=== PATIENT | male | born 1950 | race Caucasian/White ===

== ENCOUNTER 2018-05-13 20:06 | Emergency (ER) | payer MEDICARE, OTHER ==
[2018-05-13] MEDS ORDERED: Carbamide Peroxide 6.5% OTIC* 15 ML BTL BOTH EARS SCH (21:45)
[2018-05-13] MEDS ORDERED: Ciproflox/Dexameth OTIC.SUSP* 7.5 ML BTL LEFT EAR SCH (21:45)
--- NOTE | 2018-05-13 21:50 | ED ---
Throat Pain/Nasal Congestion - HPI Summary HPI Summary: This is scribe Kodak Pacheco documenting for attending Blanca Cobb MD. A 67 y/o male presents to ED c/o left ear pain and difficulty hearing reaching 4 /10 in severity. As per triage, "Pt c/o left ear pain since this weekend. States he now feels as if he can't hear from his ear. Reports hx of ear infections. States he had left over ear drops he's been utilizing with no effects". According to the patient, he has been experiencing left ear pain and difficulty hearing out of the left ear since Sunday. he noted that it started Sunday, but it became worse over this past weekend. Pt denies any fever. PMHx of external ear infection with hearing loss because it swells up. I, Dr. Cobb, personally performed the services described in this documentation as scribed in my presence and it is both accurate and complete. - History of Current Complaint Chief Complaint: EDEarPain Time Seen by Provider: 05/13/18 21:08 Hx Obtained From: Patient Onset/Duration: Sudden Onset, Lasting Days, Still Present, Worse Since - Onset Severity: Mild - 3/10 Associated Signs And Symptoms: Positive: Negative Cough: None - Allergies/Home Medications Allergies/Adverse Reactions: Allergies Allergy/AdvReac Type Severity Reaction Status Date / Time acetaminophen [From Vicodin] Allergy Anaphylatic Verified 05/13/18 20:13 Shock hydrocodone [From Vicodin] Allergy Anaphylatic Verified 05/13/18 20:13 Shock hydromorphone [From Dilaudid] Allergy Anaphylatic Verified 05/13/18 20:13 Shock oxycodone Allergy Anaphylatic Verified 05/13/18 20:13 Shock oxymorphone Allergy Anaphylatic Verified 05/13/18 20:13 Shock Penicillins Allergy Unknown Verified 05/13/18 20:13 Reaction Details PMH/Surg Hx/FS Hx/Imm Hx Endocrine/Hematology History: Reports: Hx Diabetes Cardiovascular History: Reports: Hx Hypertension, Other Cardiovascular Problems/ Disorders - OCC PAC'S Denies: Hx Pacemaker/ICD History: Reports: Hx Kidney Stones - 09/13 Denies: Hx Dialysis Comment Only: Hx Renal Disease - KIDNEY STONES, Other Problems/Disorders - hx kidney stones Musculoskeletal History: Reports: Hx Arthritis - OSTEO BILAT KNEES, Other Musculoskeletal History - L SCIATICA Sensory History: Reports: Hx Contacts or Glasses - GLASSES Denies: Hx Hearing Aid Opthamlomology History: Reports: Hx Contacts or Glasses - GLASSES Psychiatric History: Reports: Hx Anxiety, Hx Depression - WELL CONTROLLED Denies: Hx Eating Disorder, Hx Panic Disorder, Hx of Violent Episodes Against Others - Surgical History Surgery Procedure, Year, and Place: tonsilectomy/lypoma removed from back/ lithotripsy Hx Anesthesia Reactions: No Infectious Disease History: No Infectious Disease History: Denies: Traveled Outside the [place] in Last 30 Days - Family History Known Family History: Positive: Diabetes - Social History Alcohol Use: Occasionally Substance Use Type: Reports: None Hx Tobacco Use: Yes Smoking Status (MU): Never Smoked Tobacco Have You Smoked in the Last Year: No Review of Systems Negative: Fever Positive: Ear Ache - Left, Other - POSITIVE: Difficulty hearing out of left ear All Other Systems Reviewed And Are Negative: Yes Physical Exam - Summary Physical Exam Summary: VITAL SIGNS: Reviewed. GENERAL: Patient is a well-developed and nourished male who is lying comfortable in the stretcher. Patient is not in any acute respiratory distress. HEAD AND FACE: No signs of trauma. No ecchymosis, hematomas or skull depressions. No sinus tenderness. EYES: PERRLA, EOMI x 2, No injected conjunctiva, no nystagmus. EARS: Bilateral cerumen in both ears, left ear tenderness, left ear arch movement, edema in external ear canal MOUTH: Oropharynx within normal limits. NECK: Supple, trachea is midline, no adenopathy, no JVD, no carotid bruit, no c- spine tenderness, neck with full ROM. CHEST: Symmetric, no tenderness at palpation LUNGS: Clear to auscultation bilaterally. No wheezing or crackles. CVS: Regular rate and rhythm, S1 and S2 present, no murmurs or gallops appreciated. ABDOMEN: Soft, non-tender. No signs of distention. No rebound no guarding, and no masses palpated. Bowel sounds are normal. EXTREMITIES: FROM in all major joints, no edema, no cyanosis or clubbing. NEURO: Alert and oriented x 3. No acute neurological deficits. Speech is normal and follows commands. SKIN: Dry and warm Triage Information Reviewed: Yes Vital Signs On Initial Exam: Initial Vitals Temp Pulse Resp BP Pulse Ox 98.0 F 86 18 133/74 99 05/13/18 20:08 05/13/18 20:08 05/13/18 20:08 05/13/18 20:08 05/13/18 20:08 Vital Signs Reviewed: Yes Diagnostics - Vital Signs Vital Signs Temp Pulse Resp BP Pulse Ox 05/13/18 20:08 98.0 F 86 18 133/74 99 - Laboratory Lab Statement: Any lab studies that have been ordered have been reviewed, and results considered in the medical decision making process. EENT Course/Dx - Course Course Of Treatment: A 67 y/o male presents to ED c/o left ear pain and difficulty hearing reaching 4/10 in severity. No laboratory scans were done. In the ED course, the patient recieved Ciprodex and Debrox. Patient will be discharged with a diagnosis of left otitis externa and bilateral cerumen impaction. Patient is to follow up with ENT in 1-2 days. Patient will be given Ciprodex and ear drops. Patient is to use 4 drops of Ciprodex twice a day to left ear and 5 ear drops to both ears daily. Patient is agreeable with this plan. - Diagnoses Provider Diagnoses: Left otitis externa, Bilateral impacted cerumen Discharge - Sign-Out/Discharge Documenting (check all that apply): Patient Departure - DISCHARGE - Discharge Plan Condition: Stable Disposition: HOME Patient Education Materials: Cerumen Impaction (ED), Earache (ED) Referrals: Leda Juarez NP [Primary Care Provider] - Luis Miguel Bui MD [Medical Doctor] - 2 Days Additional Instructions: FOLLOW UP WITH ENT IN 1-2 DAYS. EAR DROPS: 5 DROPS DAILY IN BOTH EARS CIPRODEX: 4 DROPS TWICE PER DAY IN LEFT EAR ONLY. RETURN TO ED FOR ANY NEW OR WORSENING SYMPTOMS.
[2018-05-13 22:16] VITALS: BP 101/55
== END 2018-05-13 22:14 | disposition home or self-care (01) ==
LOC: ED 20:06
DX: H60.92 Unspecified otitis externa, left ear (principal); H61.23 Impacted cerumen, bilateral; E11.9 Type 2 diabetes mellitus without complications; I10 Essential (primary) hypertension; Z86.79 Personal history of other diseases of the circulatory system; Z87.442 Personal history of urinary calculi
CPT/HCPCS: 99283; A9270-GY

== ENCOUNTER 2018-12-18 05:44 | Day surgery (SDC) | payer MEDICARE, OTHER ==
--- NOTE | 2018-12-14 13:40 | HP ---
CC: Leda Juarez NP * HISTORY AND PHYSICAL: DATE OF PLANNED ADMISSION AND SURGERY: 12/18/18 HISTORY OF PRESENT ILLNESS: Mr. Ricardo is a 68-year-old white male who is admitted with a proximal right ureteral calculus for cystoscopy, placement of right ureteral stent, possible right ureteroscopy, and laser lithotripsy. I have been following Mr. Ricardo for several years because of bilateral renal calculi. He had required a right ureteroscopy and laser lithotripsy because of an obstructing renal calculus in July 2006. He then required treatment for left renal calculi including percutaneous lithotripsy in 2007. Patient presented recently for followup of his renal calculus disease. Noncontrast CT of the abdomen and pelvis showed a non-obstructing 2 cm calculus in the lower pole calyx of the left kidney. There was also an 8 mm calculus in the proximal right ureter with no associated hydronephrosis. Small right renal calculi were also noted. Because of that finding and the concern about an obstruction as a result of the right ureteral calculus, the patient is admitted for the above procedure. Patient had metabolic stone workup and was noted to have low citrate excretion and high calcium urine excretion. He had been maintained on potassium citrate supplementation and was recently started on chlorthalidone 25 mg daily to correct the hypercalcuria. PAST MEDICAL HISTORY AND SYSTEM REVIEW: Patient is diabetic and has been maintained on glipizide and was recently started on a glycosuric agent controlling his blood sugar, which has been running around 130. He is hypertensive, maintained on losartan. He is on tamsulosin 0.4 mg daily for bladder outlet obstruction. He denies any cardiac or pulmonary diseases or symptoms. ALLERGIES: He reports being allergic to PENICILLIN and to CODEINE. FAMILY HISTORY: Relevant for diabetes mellitus, coronary artery disease, hypertension in his father. SOCIAL HISTORY: Patient is a former smoker and he stopped in 1969. He has 4 or 5 glasses of wine per week. He denies any recreational drug use. PHYSICAL EXAMINATION GENERAL: Moderately overweight; otherwise, healthy-looking white male. VITAL SIGNS: Blood pressure 130/70, pulse of 64. LUNGS: Clear. HEART: Regular and rhythmic. No murmurs. ABDOMEN: Soft. No masses, no tenderness, and no CVA tenderness. EXTERNAL GENITALIA: Normal. RECTAL: Exam had shown a moderately enlarged, but non-suspicious prostate. IMPRESSION: 1. A 2 cm nonobstructing calculus in the lower pole calyx of the left kidney. 2. An 8 mm nonobstructing calculus in the proximal right ureter. 3. Diabetes mellitus. 4. Hypertension. PLAN/RECOMMENDATIONS: Plan is for cystoscopy and insertion of right ureteral stent. If the calculus is found to be accessible by ureteroscopy, then ureteroscopy and laser lithotripsy will be performed. Otherwise, patient will be scheduled to have shockwave lithotripsy of the right ureteral calculus at a later date. I discussed the above plans with the patient. All his questions were answered. [id number]/[facility] #: [id number] TOÑO
[~2018-12-18 05:44] MED LIST: Buffered Lidocaine 1% SYRIN* 1 ML/SYRINGE INTRADERM ONE
[2018-12-18] MEDS ORDERED: Lactated Ringers 1000 ML Bag* 1,000 ML IV SCH (06:00)
[2018-12-18] MEDS ORDERED: Famotidine IV* 10 MG/ML 2 ML (20 mg) IV ONE (06:00)
[2018-12-18] MEDS ORDERED: Levofloxacin 750 MG IVPREMIX(* 750 MG/150 ML BAG ONE (06:03)
[2018-12-18] MEDS ORDERED: Famotidine IV* 10 MG/ML 2 ML (20 mg) ONE (06:03)
[2018-12-18] MEDS ORDERED: Midazolam* 1 MG/ML 5 ML VIAL (5 MG) ONE (07:11)
[2018-12-18] MEDS ORDERED: Lidocaine 2% PF * 5 ML VIAL ONE (07:11)
[2018-12-18] MEDS ORDERED: Dexamethasone IV* 4 MG/ML 1 ML (4 MG) ONE (07:11)
[2018-12-18] MEDS ORDERED: Ondansetron INJ* 2 MG/ML VIAL ONE (07:11)
[2018-12-18] MEDS ORDERED: Propofol* 10 MG/ML 20 ML BTL ONE (07:11)
[2018-12-18] MEDS ORDERED: fentaNYL* 50 MCG/ML 2 ML VIAL (100 MCG VIAL) ONE (07:11)
[2018-12-18] MEDS ORDERED: Iohexol 180 (CONTRAST) 10 ML SDV IV ONE (07:15)
[2018-12-18] MEDS ORDERED: Ketorolac INJ* 30 MG/ML 1 ML VIAL ONE (08:12)
[2018-12-18] MEDS ORDERED: fentaNYL* 50 MCG/ML 2 ML VIAL (100 MCG VIAL) IV PRN (08:14)
[2018-12-18] MEDS ORDERED: Ondansetron INJ* 2 MG/ML VIAL IV PRN (08:14)
[2018-12-18] MEDS ORDERED: Naloxone* 0.4 MG/ML 1 ML VIAL IV PRN (08:14)
[2018-12-18 09:47] VITALS: BP 126/86
--- NOTE | 2018-12-18 09:59 | OP ---
CC: Leda Juarez NP * DATE OF OPERATION: 12/18/18 - [facility] DATE OF : 52 SURGEON: Dr. Ken ANESTHESIOLOGIST: Dr. Chris Flowers. ANESTHESIA: General. PRE-OP DIAGNOSIS: Proximal right ureteral calculus (8 mm). POST-OP DIAGNOSIS: Proximal right ureteral calculus (8 mm). OPERATIVE PROCEDURE: 1. Cystoscopy. 2. Right ureteroscopy, laser lithotripsy, and right ureteral stent insertion ( 7 Serbian). INDICATIONS: Mr. Ricardo is a 68-year-old stone former who had a recent noncontrast CT of the abdomen and pelvis for evaluation of his bilateral renal calculi. There was an nonobstructing 2-cm calculus in the lower pole calyx of the left kidney and a nonobstructing 8-mm calculus in the proximal right ureter. Because of that finding. The size and the location of the stone, the patient was brought in for the above procedure. PATHOLOGY AT CYSTOSCOPY: The penile and bulbar urethra looked normal. There was significant degree of obstruction by prostate enlargement, in particular by prominent medial lobe. Examination of the bladder showed moderate diffuse trabeculations. There were no suspicious bladder lesions seen. No calculi or diverticuli were noted. The ureteral orifices looked normal. At fluoroscopy, a radiopaque calculus was noted across from L3-L4. Upon right ureteroscopy, the ureter was moderately dilated and there was no difficulty introducing the ureteroscope. The calculus was noted in the proximal ureter. It was impacted. It had the gross appearance of a calcium oxylate stone. There was significant degree of edema of the adjacent ureteral mucosa. Mild hydronephrosis was noted. DESCRIPTION OF PROCEDURE: After successful general anesthesia, the patient was placed in the lithotomy position and was prepped and draped for a cystoscopy. Cystoscopy was performed. The bladder was carefully inspected and the findings in the prostatic urethra and in the bladder were noted. A flexible tip guidewire was then introduced into the right orifice and positioned without difficulty into the area of the renal pelvis under fluoroscopic guidance. A size 6.5 semi-rigid ureteroscope was then introduced inside the bladder. A flexible tip basket was then introduced through the port of the ureteroscope and the flexible tip was then introduced inside the right ureter adjacent to the guidewire. That allowed the atraumatic introduction of the ureteroscope inside the ureter. The ureter accommodated the ureteroscope without any resistance or difficulty. The calculus was identified. The basket was then introduced beyond the stone and it was deployed just proximal to the stone to prevent proximal wide migration of the calculus. A size 550 micron laser fiber was then introduced through the other port of the ureteroscope. The laser fiber was then positioned over the stone and the stone was broken into multiple fragments using laser energy. Care was taken not to cause any damage to the ureteral wall. After fragmenting the stone into smaller pieces, the larger fragment was then extracted with the basket and was sent for stone analysis. Several smaller fragments were extracted and washed inside the bladder. Final inspection with the ureteroscope showed no residual stone fragments and intact ureteral wall without any ureteral injury. There was, however, significant degree of hyperemia and abrasion of the mucosa because of the longstanding impaction of the calculus at that level. The cystoscope was reintroduced inside the bladder. Open ended catheter was positioned in the mid ureter and retrograde pyelography was performed demonstrating an intact ureter without evidence of any extravasation and only mild hydronephrosis. A size 7-Serbian stent was then placed over a guidewire and positioned with the proximal end coiling in the renal pelvis and the distal end coiling inside the bladder. Again, there was good drainage of contrast from the kidney and no extravasation. A 16-Serbian Hernandez catheter was then placed. The patient tolerated the procedure well and left the operating room in good condition. The plan is to keep the stent in place for about 2 weeks. It will be removed in the office under local anesthesia. The patient will then be referred for percutaneous lithotripsy of the large left renal calculus. [id number]/[facility] #: [id number] TOÑO
== END 2018-12-18 11:36 | disposition home or self-care (01) ==
LOC: OR 05:44
PROVIDERS: ATTEND Urology
DX: N13.2 Hydronephrosis with renal and ureteral calculous obstruction (principal); Z87.442 Personal history of urinary calculi; I10 Essential (primary) hypertension; Z88.0 Allergy status to penicillin; Z87.891 Personal history of nicotine dependence; E11.9 Type 2 diabetes mellitus without complications; I49.1 Atrial premature depolarization; M19.90 Unspecified osteoarthritis, unspecified site; F41.8 Other specified anxiety disorders
CPT/HCPCS: 74420; 82365; 88300; C1876; J1100; J1885; J2250; J2405; J2704; J3010

== ENCOUNTER 2019-07-07 19:29 | Day surgery (SDC) | payer MEDICARE, OTHER ==
--- OUTSIDE RECORDS SUMMARY | 2019-07-07 19:38 | XMS REPORT | Continuity of Care Document ---
:1950 External Reference #:[id number] Author Name Brandin Lyons MD (transmitted by agent of provider Chrissie Dwyer) Address [address] [place] [address] Care Team Providers Name Role Phone Sharon Hurst MD - Internal Care Team Information Solution Advisor Medicine Problems Active Problems Provider Date Diabetes mellitus Sharon Hurst M.D. Onset: 07/03/2014 Uric acid urolithiasis Concepcion Goncalves M.D., FACP Onset: 11/28/2011 Benign essential hypertension Concepcion Goncalves M.D., FACP Onset: 11/28/2011 Pure hypercholesterolemia Concepcion Goncalves M.D., FACP Onset: 11/28/2011 Essential hypertension Leda Juarez N.P. Onset: 07/13/2015 Social History Type Date Description Comments Sex Unknown ETOH Use Occasionally consumes alcohol Tobacco Use Start: Unknown Patient has never smoked Recreational Drug Use Denies Drug Use Smoking Status Reviewed: 06/12/19 Patient has never smoked Enjoy Exercising Enjoys exercising Exercises regularly Exercise Type/Frequency Exercises regularly swim Mondays and , Bike Sunday and fridays, walking. 30- 90 minutes daily Allergies, Adverse Reactions, Alerts Active Allergies Reaction Severity Comments Date Oxycodone swollen tongue Moderate 06/21/2010 Penicillin unknown 06/21/2010 Morphine and Related Anaphylaxis, Severe 10/06/2014 Medications Active Medications SIG Qnty Indications Ordering Date Provider Glipizide XL 20mg once daily 180tabs E11.65 Brandin Lyons MD 06/12/2019 10mg Tablets ER 24HR Jardiance 1 by mouth every 30tabs E11.65 Brandin Lyons MD 03/12/2019 25mg Tablets day Freestyle Daryl [address] one sensor 2units E11.65 Brandin Lyons MD 2018 Day/Sensor/Flash every 14 days Monitoring System Misc Metformin HCL ER 2 tablets by mouth 180tabs E11.65 Brandin Lyons MD 2018 750mg daily Tablets ER 24HR Psyllium Fiber Twice Daily Leda Juarez, 09/10/2018 N.P. Ciclopirox apply to affected Leda Juarez, 09/10/2018 8% Solution toenails and N.P. surrounding skin at bedtime Escitalopram Oxalate take 1 tablet by 30tabs F41.9 Leda Juarez, 2016 mouth every day N.P. 10mg Tablets Cialis 1 tablet every 3 14tabs Leda Diazmarilu, 05/09/2016 10mg Tablets days as needed N.P. Onetouch Verio use three times 1units Leda Juarez, 03/08/2016 w/Device daily or as N.P. Kit directed Onetouch Verio Use three times 100units Leda Diazmarilu, 03/08/2016 Strips daily or as N.P. directed. Traction Leda Juarez, 03/07/2016 Kit/Over-Door/Economy N.P. /Disp Head Halter Kit One Daily For Men 50+ Unknown Advanced Men 50+ Tablets Chlorthalidone 1 by mouth every 30tabs Unknown 25mg day Tablets Vitamin E-400 Unknown 400Unit Capsules Vitamin D3 Unknown 400Unit Chewtabs Dhea 1 by mouth one Unknown 50mg Capsules time per day Ginseng 2 Per Day Unknown Flomax 1 by mouth every Unknown 0.4mg Capsules day Metamucil as needed Unknown 28.3% Powder Multi Vitamin Daily Unknown Tablets Losartan Potassium take one tablet by 90tabs Leda Diazmarilu, mouth every day N.P. 100mg Tablets Potassium Citrate 4 tablets daily Dandre Ken, 10Eb LOVING (1080 mg) Immunizations CPT Code Status Date Vaccine Lot # [id number] Given 06/23/2017 Fluzone High Dose [id number] Given 11/04/2016 Influ Virus Vaccine, Quadrivalent, Split Virus, [place] [address] Given 07/13/2015 Pneumonia Vaccine [id number] 26653 Given 07/13/2015 Influenza Virus Vaccine, Quadrivalent, Split, [id number] Preservative Free 61911 Given 07/01/2013 Flu Vaccine Split Virus Preservative Free For [id number] Indiv 3Yr Older 20153 Given 11/30/2011 Zoster (Zostavax) [id number] 46831 Given 11/30/2011 Tdap - Tetanus/Diptheria/Acellular Pertussis [id number] 51022 Given 06/22/2010 Influenza Virus 3Yrs & Over 81839 Given 10/11/2009 Influenza Virus Vaccine, Pandemic Formulation 39966 Given 10/11/2009 Influenza Virus 3Yrs & Over 32126 Given 10/11/2009 Administration Swine Flu Shot 09126 Given 09/04/2008 Influenza Virus 3Yrs & Over 32259 Given 09/04/2008 Influenza Virus 3Yrs & Over 34164 Given 10/11/2006 Influenza Virus 3Yrs & Over Vital Signs Date Vital Result Comment 06/12/2019 11:48am Height 70 inches 5'10" Weight 210.00 lb w/ shoes Heart Rate 61 /min BP Systolic Sitting 113 mmHg BP Diastolic Sitting 72 mmHg BMI (Body Mass Index) 30.1 kg/m2 03/12/2019 9:35am Height 70 inches 5'10" Weight 214.00 lb w/ shoes Heart Rate 87 /min BP Systolic Sitting 123 mmHg BP Diastolic Sitting 76 mmHg BMI (Body Mass Index) 30.7 kg/m2 Results Test Date Facility Test Result H/L Range Note Stone Analysis 12/18/2018 [facility] Kidney Stone Ureter [address] [place] [address] [phone] Kidney Stone 1st Constituent See Comment 1 Kidney Stone 2nd Constituent See Comment 2 Laboratory test 12/18/2018 [facility] Point of Care 141 mg/dL High 70-[address] [place] [address] [phone] 1 RESULT: 80% Calcium oxalate monohydrate 2 RESULT: 20% Calcium oxalate dihydrate ADDITIONAL INFORMATION This test was developed and its performance characteristics determined by [facility] in a manner consistent with CLIA requirements. This test has not been cleared or approved by the U.S. Food and Drug Administration. Test Performed by: [facility] [address] [place] [address] 3 [employer]or: [id number] Procedures Date Code Description Status 11/13/2018 [id number] Diabetic Retinal Eye Exam Completed 01/15/2017 [id number] Diabetic Retinal Eye Exam Completed 03/07/2012 [id number] Colonoscopy Completed 12/30/2006 [id number] Colonoscopy Completed Medical Devices Description No Information Available Encounters Type Date Location Provider Dx Diagnosis Office Visit 03/12/2019 [facility] and Brandin Lyons MD E11.65 Type 2 diabetes 9:20a Endocrinology [facility] mellitus with hyperglycemia I10 Essential (primary) hypertension Office Visit 03/11/2019 10:00a [facility] Internal Nita Juarez Essential ( primary) Medicine - [facility] N.P. hypertension E11.65 Type 2 diabetes mellitus with hyperglycemia B35.1 Tinea unguium Assessments Date Code Description Provider 06/12/2019 E11.65 Type 2 diabetes mellitus with hyperglycemia Brandin Lyons MD 03/12/2019 E11.65 Type 2 diabetes mellitus with hyperglycemia Brandin Lyons MD 03/12/2019 I10 Essential (primary) hypertension Brandin Lyons MD 03/11/2019 I10 Essential (primary) hypertension Leda Juarez, N.P. 03/11/2019 E11.65 Type 2 diabetes mellitus with hyperglycemia Leda Juarez , N.P. 03/11/2019 B35.1 Tinea unguium Leda Juarez, N.P. Plan of Treatment Future Appointment(s):09/18/2019 11:40 am - Brandin Lyons MD at [facility]09/19/2019 9:20 am - Leda Juarez, N.P. at [facility] Brandin Lyons MDE11.65 Type 2 diabetes mellitus with hyperglycemiaNew Medication:Glipizide XL 10 mg - 20mg once dailyInstructions:1. Increase glipizide XL to 10mg once daily. 2. If average blood glucose is >140mg/dL, increase glipizide XL to 20mg once daily. 3. Consider [id number] insulin such as Lantus or Tresiba. 4. Your A1c goal is less than 7.5%. 5. Blood tests today. Functional Status Description No Information Available Mental Status Description No Information Available Referrals Refer to Dr Reason for Referral Status Appt Date Kike Naranjo DPM Patient is a diabetic with fungal infection Sent of both great toes. resent on 06/[address] [place] [address] [phone]
[2019-07-07 20:10] LABS: Urine Appearance Clear; Urine Bacteria Absent (Absent); Urine Bilirubin Negative (Negative); Urine Blood 1+ (Negative); Urine Color Yellow; Urine Glucose 3+(>=500 mg/dL) (Negative); Urine Ketones Negative (Negative); Urine Nitrite Negative (Negative); Urine Protein Negative (Negative); Urine Red Blood Cell Trace(0-2/hpf) (Absent); Urine Specific Gravity 1.023 (1.010-1.030); Urine Squamous Epithelial Cell Present (Absent); Urine Urobilinogen Negative (Negative); Urine White Blood Cell 2+(11-20/hpf) (Absent)
[2019-07-07] MEDS ORDERED: Ketorolac INJ* 30 MG/ML 1 ML VIAL IV ONE (22:47)
[2019-07-07] MEDS ORDERED: Ondansetron INJ* 2 MG/ML VIAL IV ONE (22:47)
[2019-07-07 23:14] LABS: ABS Basophils 0.1 10^3/ul (0-0.2); ABS Lymphocytes 0.5 10^3/ul (1.0-4.8); ABS Neutrophils 13.1 10^3/ul (1.5-7.7); Eosinophil % 0.1 %; Hematocrit 44 % (42-52); Hemoglobin 14.9 g/dL (14.0-18.0); Lymphocyte % 3.3 %; Mean Corpuscular HGB Conc 34 g/dL (31-36); Mean Corpuscular Hemoglobin 30 pg (27-31); Mean Corpuscular Volume 89 fL (80-94); Platelet Count 222 10^3/uL (150-450); Red Blood Count 4.93 10^6 /uL (4.18-5.48); Red Cell Distribution Width 15 % (10-15); White Blood Count 14.7 10^3/uL (3.5-10.8)
--- NOTE | 2019-07-07 23:40 | ED ---
Back Pain - HPI Summary HPI Summary: Pt is a 69 y/o M presenting to the ED with a chief complaint of L-sided flank pain initially onset earlier today, 07/07/19. He states he has a long hx of recurring kidney stones that usually pass on their own. However, this pain was sudden onset at 07/10 and it has not moved very far down. His last kidney stone , Dr. Ken placed a stent after breaking up the stone. He reports N/V. He denies fever. 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 - History of Current Complaint Chief Complaint: EDAbdPain Stated Complaint: POSS KIDNEY STONE PER PT Time Seen by Provider: 07/07/19 22:27 Hx Obtained From: Patient Onset/Duration: Sudden Onset, Lasting Hours, Still Present Onset/Duration: Started Hours Ago, Still Present Timing: Constant, Lasting Hours Back Pain Location: Is Discrete @ - L flank Severity Initially: Severe Severity Currently: Severe Pain Intensity: 10 Pain Scale Used: 0-10 Numeric Aggravating Symptom(s): Nothing Alleviating Symptom(s): Nothing Associated Signs And Symptoms: Positive: Flank Pain. Negative: Fever - Allergies/Home Medications Allergies/Adverse Reactions: Allergies Allergy/AdvReac Type Severity Reaction Status Date / Time hydrocodone [From Vicodin] Allergy Severe Anaphylatic Verified 07/07/19 19:32 Shock hydromorphone [From Dilaudid] Allergy Severe Anaphylatic Verified 07/07/19 19:32 Shock oxycodone Allergy Severe Anaphylatic Verified 07/07/19 19:32 Shock oxymorphone Allergy Severe Anaphylatic Verified 07/07/19 19:32 Shock Penicillins Allergy Unknown Unknown Verified 07/07/19 19:32 Reaction Details Home Medications: Home Medications Aspirin [Aspir-Low] 81 mg PO QPM 07/07/19 [History Confirmed 07/07/19] Chlorthalidone 25 mg PO QAM 07/07/19 [History Confirmed 07/07/19] Empaglifozin (NF) [Jardiance] 25 mg PO QAM 07/07/19 [History Confirmed 07/07/19] Glipizide/Metformin HCl 5 - 500 mg PO QID 07/07/19 [History Confirmed 07/07/19] glipiZIDE [Glipizide ER] 20 mg PO QAM 07/07/19 [History Confirmed 07/07/19] PMH/Surg Hx/FS Hx/Imm Hx Previously Healthy: Yes Endocrine/Hematology History: Reports: Hx Diabetes - type 2 Cardiovascular History: Reports: Hx Hypertension, Other Cardiovascular Problems/ Disorders - OCC PAC'S Denies: Hx Pacemaker/ICD History: Reports: Hx Kidney Stones - hx of and now Denies: Hx Dialysis Comment Only: Hx Renal Disease - KIDNEY STONES, Other Problems/Disorders - hx kidney stones Musculoskeletal History: Reports: Hx Arthritis - OSTEO BILAT KNEES, Other Musculoskeletal History - hx of R SCIATICA- resolved Sensory History: Reports: Hx Contacts or Glasses - GLASSES Denies: Hx Hearing Aid Opthamlomology History: Reports: Hx Contacts or Glasses - GLASSES Psychiatric History: Reports: Hx Anxiety - hx of panic attacks- not lately, Hx Depression - WELL CONTROLLED Denies: Hx Eating Disorder, Hx Panic Disorder, Hx of Violent Episodes Against Others - Cancer History Hx Chemotherapy: No - Surgical History Surgery Procedure, Year, and Place: tonsilectomy/lypoma removed from back/ lithotripsy. 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 Hx Anesthesia Reactions: No - Immunization History Immunizations Up to Date: Yes Infectious Disease History: Yes Infectious Disease History: Denies: Traveled Outside the [place] in Last 30 Days - Family History Known Family History: Positive: Diabetes - Social History Alcohol Use: Occasionally Hx Substance Use: No Substance Use Type: Reports: None Hx Tobacco Use: Yes Smoking Status (MU): Former Smoker Have You Smoked in the Last Year: No Review of Systems Negative: Fever Positive: Vomiting, Nausea Positive: flank pain All Other Systems Reviewed And Are Negative: Yes Physical Exam - Summary Physical Exam Summary: Constitutional: Well-developed, Well-nourished, Alert. (-) Distressed Skin: Warm, Dry HENT: Normocephalic; Atraumatic Eyes: Conjunctiva normal Neck: Musculoskeletal ROM normal neck. (-) JVD, (-) Stridor, (-) Tracheal deviation Cardio: Rhythm regular, rate normal, Heart sounds normal; Intact distal pulses; Radial pulses are 2+ and symmetric. (-) Murmur Pulmonary/Chest wall: Effort normal. (-) Respiratory distress, (-) Wheezes, (-) Rales Abd: Soft, (-) tenderness, (-) Distension, (-) Guarding, (-) Rebound Musculoskeletal: (-) Edema Lymph: (-) Cervical adenopathy Neuro: Alert, Oriented x3 Psych: Mood and affect Normal Triage Information Reviewed: Yes Vital Signs On Initial Exam: Initial Vitals Temp Pulse Resp BP Pulse Ox 97.8 F 77 16 136/83 99 07/07/19 19:30 07/07/19 19:30 07/07/19 19:30 07/07/19 19:30 07/07/19 19:30 Vital Signs Reviewed: Yes Procedures - Sedation Patient Received Moderate/Deep Sedation with Procedure: No Diagnostics - Vital Signs Vital Signs Temp Pulse Resp BP Pulse Ox 07/07/19 19:30 97.8 F 77 16 136/83 99 - Laboratory Lab Results: Lab Results 07/07/19 07/07/19 Range/Units 19:51 23:07 WBC 14.7 H (3.5-10.8) 10^3/uL RBC 4.93 (4.18-5.48) 10^6 /uL Hgb 14.9 (14.0-18.0) g/dL Hct 44 (42-52) % MCV 89 (80-94) fL MCH 30 (27-31) pg MCHC 34 (31-36) g/dL RDW 15 (10-15) % Plt Count 222 (150-450) 10^3/uL MPV 7.0 L (7.4-10.4) fL Neut % (Auto) 89.6 % Lymph % (Auto) 3.3 % [place] % (Auto) 6.6 % Eos % (Auto) 0.1 % Baso % (Auto) 0.4 % Absolute Neuts (auto) 13.1 H (1.5-7.7) 10^3/ul Absolute Lymphs (auto) 0.5 L (1.0-4.8) 10^3/ul Absolute Monos (auto) 1.0 H (0-0.8) 10^3/ul Absolute Eos (auto) 0.0 (0-0.6) 10^3/ul Absolute Basos (auto) 0.1 (0-0.2) 10^3/ul Absolute Nucleated RBC 0.0 10^3/ul Nucleated RBC % 0.0 Urine Color Yellow Urine Appearance Clear Urine pH 5.0 (5-9) Ur Specific [place] 1.023 (1.010-1.030) Urine Protein Negative (Negative) Urine Ketones Negative (Negative) Urine Blood 1+ A (Negative) Urine Nitrate Negative (Negative) Urine Bilirubin Negative (Negative) Urine Urobilinogen Negative (Negative) Ur Leukocyte Esterase Negative (Negative) Urine WBC (Auto) 2+(11-20/hpf) A (Absent) Urine RBC (Auto) Trace(0-2/hpf) (Absent) Ur Squamous Epith Cells Present A (Absent) Urine Bacteria Absent (Absent) Urine Glucose 3+(>=500 mg/dl) A (Negative) Result Diagrams: 07/07/19 23:07 07/07/19 23:07 Lab Statement: Any lab studies that have been ordered have been reviewed, and results considered in the medical decision making process. Back Pain Course/Dx - Course Course Of Treatment: Patient is here with left flank pain secondary to a 14 mm obstructed kidney stone. Patient has a hydronephrosis as well. Patient has no symptoms consistent with infected kidney stones antibiotics were not given. Patient had good pain resolution with Toradol. Urology was called and they recommended admission for possible procedure in the morning - Diagnoses Provider Diagnoses: Urinary tract obstruction by kidney stone, Hydronephrosis - Provider Notifications Discussed Care Of Patient With: Shubham Duarte Time Discussed With Above Provider: 00:45 Instructed by Provider To: Admit As Inpatient Discharge ED - Sign-Out/Discharge Documenting (check all that apply): Patient Departure - Discharge Plan Condition: Stable Disposition: ADMITTED TO [facility] Referrals: Leda Juarez NP [Primary Care Provider] - - Billing Disposition and Condition Condition: STABLE Disposition: Admitted to [facility] - Attestation Statements Document Initiated by Meeraibclay: Yes Documenting Scribe: Connie Beard Provider For Whom Deb is Documenting (Include Credential): Ez Cummins MD. Scribe Attestation: Connie Rodríguez, scribed for Ez Cummins MD. on 07/08/19 at 0358. Scribe Documentation Reviewed: Yes Provider Attestation: The documentation as recorded by the scribeConnie accurately reflects the service I personally performed and the decisions made by me, Ez Cummins MD. Status of Scribe Document: Viewed Consult Consult: 0038 - I spoke with Dr. Ken who recommends that the pt be admitted to the hospitalist. 0045 - I spoke with Dr. Duarte who accepts the pt for admission.
[2019-07-07 23:57] LABS: BUN/Creatinine Ratio 21.7 (8-20); Calcium 9.8 mg/dL (8.6-10.3); EGFR Non-African American 51.2 (>60)
[2019-07-08] MEDS ORDERED: NS 0.9% 1000 ML** 1,000 ML IV ONE (04:56)
[2019-07-08] MEDS ORDERED: NS 0.9% 1000 ML** 1,000 ML IV SCH (05:00)
[2019-07-08] MEDS ORDERED: Ondansetron INJ* 2 MG/ML VIAL IV PRN (05:03)
[2019-07-08] MEDS ORDERED: Ketorolac INJ* 15 MG/ML 1 ML VIAL IV PUSH PRN (05:08)
[2019-07-08 06:00] LABS: ABS Basophils 0.1 10^3/ul (0-0.2); ABS Lymphocytes 1.1 10^3/ul (1.0-4.8); ABS Monocytes 0.7 10^3/ul (0-0.8); ABS Neutrophils 12.1 10^3/ul (1.5-7.7); Eosinophil % 0.2 %; Hematocrit 43 % (42-52); Hemoglobin 14.8 g/dL (14.0-18.0); Lymphocyte % 8.1 %; Mean Corpuscular HGB Conc 34 g/dL (31-36); Mean Corpuscular Hemoglobin 31 pg (27-31); Mean Corpuscular Volume 89 fL (80-94); Mean Platelet Volume 7.3 fL (7.4-10.4); Platelet Count 224 10^3/uL (150-450); Red Blood Count 4.85 10^6 /uL (4.18-5.48); Red Cell Distribution Width 14 % (10-15)
[2019-07-08 06:15] LABS: Calcium 9.5 mg/dL (8.6-10.3); Potassium 4.2 mmol/L (3.5-5.0)
[2019-07-08 06:21] LABS: BUN/Creatinine Ratio 21.8 (8-20); EGFR African American 53.8 (>60); EGFR Non-African American 44.5 (>60)
[2019-07-08] MEDS ORDERED: Insulin LISPRO* 1 UNITS UNIT SUBCUT SCH (07:30)
[2019-07-08] MEDS ORDERED: Dextrose 50% VIAL 50 ml IV PUSH PRN (07:35)
[2019-07-08] MEDS ORDERED: Escitalopram * 10 MG TAB PO SCH (09:00)
[2019-07-08] MEDS ORDERED: Tamsulosin CAP* 0.4 MG PO SCH (09:00)
[2019-07-08] MEDS ORDERED: Calcium Polycarbophil TAB* 625 MG PO SCH (09:00)
[2019-07-08] MEDS ORDERED: Multivitamins/Minerals TAB PO SCH (09:00)
[2019-07-08] MEDS ORDERED: VITAMIN E 400 UNIT PO SCH (09:00)
[2019-07-08] MEDS ORDERED: VITAMIN D 2000 UNIT PO SCH (09:00)
--- NOTE | 2019-07-08 09:09 | HP ---
CC: Yvette Leda Diazmarilu, CHEMICAL RADIATION TECHNICIAN * Urology Pre-op Note: DATE OF ADMISSION AND SURGERY: 07/08/19 HISTORY OF PRESENT ILLNESS: Mr. Ricardo is a 69-year-old white male who is admitted with left renal colic, obstructing proximal left ureteral calculus, for cystoscopy and insertion of left ureteral stent. Mr. Ricardo is a known stone former and I have been following him for many years because of bilateral renal and ureteral calculi. He had a metabolic stone workup and was noted to have low citrate urine excretion and high calcium urine excretion, and has been maintained on potassium citrate supplementation and chlorthalidone 25 mg daily. He was recently seen in consultation at the [facility] because of large left renal calculi, with the option of performing percutaneous lithotripsy. The stones were asymptomatic and non obstructing and recommendation was made for continued conservative management. Patient presented to the emergency room late last night with symptoms of left renal colic. He did not have any fever or chills. There was associated nausea and vomiting. Non-contrast CT of the abdomen and pelvis showed a 2 cm nonobstructing calculus in the lower pole calyx of the left kidney, a 1.5 cm obstructing calculus in the proximal left ureter. There were reactive changes around the left kidney consistent with edema or possible urinary extravasation. There were also smaller non-obstructing right renal calculi. No other abnormalities were noted. Patient's lab work showed a white count of 14,000. His creatinine was 1.6. Urinalysis showed +2 esterase, +1 blood, negative nitrite. Patient was managed with IV fluid and pain medications. Because of the size of the stone, its location and the associated hydronephrosis ,he will be taken to the operating room for insertion of left ureteral stent in preparation for definitive treatment of the stone. PAST MEDICAL HISTORY AND SYSTEM REVIEW: He is diabetic, maintained on glipizide. He denies any cardiac or pulmonary diseases or symptoms. He is hypertensive, maintained on losartan. He has been on tamsulosin 0.4 mg daily for bladder outlet obstruction. ALLERGIES: Patient reports being allergic to PENICILLIN (reaction unknown, childhood reaction?) and to ALL OPIATES which give him swelling of the tongue. FAMILY HISTORY: Relevant for diabetes mellitus, coronary artery disease and hypertension in his father. SOCIAL HISTORY: Patient is a former smoker, stopped in 1969. He has 4 or 5 glasses of wine per week. He denies recreational drug use. 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 PHYSICAL EXAMINATION GENERAL: He is an overweight white male who is in mild pain. VITAL SIGNS: Blood pressure 115/70. Pulse of 76. Temperature 98. LUNGS: Clear. HEART: Regular and rhythmic. No murmurs. ABDOMEN: Soft. There is mild left CVA tenderness. The rest of the abdominal exam is normal. IMPRESSION: 1. Left renal colic secondary to 1.5 cm obstructing calculus in the proximal left ureter. 2. Nonobstructing 2 cm calculus in the lower pole calyx of the left kidney. 3. Nonobstructing right renal calculi. 4. Diabetes mellitus. PLAN: Plan is for cystoscopy and insertion of left ureteral stent in preparation for definitive treatment of the stone. I discussed above plans with the patient. All his questions were answered. [id number]/CPS #: [id number] MTDD
--- NOTE | 2019-07-08 09:42 | HP ---
CC: Leda Juarez NP; Dr. Dandre Ken * ADMISSION HISTORY AND PHYSICAL: DATE OF ADMISSION: 07/08/19 PRIMARY CARE PHYSICIAN: Leda Juarez NP. UROLOGIST: Dr. Dandre Ken. CHIEF COMPLAINT: Left-sided flank pain radiating to the groin, accompanied by nausea and vomiting. HISTORY OF PRESENT ILLNESS: This is a 69-year-old male with past medical history of hypertension; type 2 diabetes; depression; multiple episodes of kidney stones, status post 2 to 3 stents on the left and 1 stent on the right with laser lithotripsy, came in with another episode of left-sided flank pain, which was radiating to his groin and this is the worse pain he has had even compared to his previous kidney stones, accompanied by nausea and an episode of vomiting. Denied any other urinary burning sensation, pain with urination, any fever or chills, any chest pain or shortness of breath, dizziness, lightheadedness, or any sick contacts. PAST MEDICAL HISTORY: As mentioned hypertension, diabetes type 2, depression, benign prostatic hypertrophy, multiple episodes of kidney stones with stenting and lithotripsy, history of sialadenitis, status post resection. His stone type was mixed and uric acid stones. PAST SURGICAL HISTORY: Tonsillectomy; multiple ureteral stents and lithotripsy in 2007 twice; and resection of his left neck adenopathy, which was noted to be sialadenitis which was benign. HOME MEDICATIONS: The patient is currently on: 1. Aspirin 81 mg oral daily. 2. Glipizide 20 mg oral daily every morning. 3. Chlorthalidone 25 mg a day every morning. 4. Jardiance 25 mg daily every morning. 5. Glipizide with metformin 5/500 p.o. q.i.d. 6. Fiber laxatives 625 mg p.o. b.i.d. 7. Lexapro 10 mg p.o. every morning. 8. Flomax 0.4 mg every morning. 9. Potassium citrate 10 mEq q.i.d. 10. Multivitamins 1 tablet every morning. 11. Losartan 100 mg daily at bedtime. 12. Vitamin E 400 units p.o. b.i.d. 13. Vitamin D 2000 units p.o. b.i.d. ALLERGIES: The patient is allergic to HYDROCODONE, HYDROMORPHONE, OXYCODONE, OXYMORPHONE, all cause anaphylactic reaction, and PENICILLIN causes unknown reaction. FAMILY HISTORY: Father at age 80, has had a history of diabetes, kidney stones, and heart attack at age 65. Mother is alive at age 94 without any medical problems. 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 Never smoked, but did try pipes, which he used to smoke about 1 pipe every month. Denies any alcohol or drug use. Lives alone with 2 cats. He is a full code and his oldest daughter Maday Ricardo would be his healthcare proxy. REVIEW OF SYSTEMS: A 14-point review of systems did not reveal any new information other than what is mentioned in the HPI. PHYSICAL EXAMINATION GENERAL: The patient is awake, alert, and oriented x3, did not appear to be in any acute respiratory distress. VITAL SIGNS: BP was noted to be 112/69, heart rate 86, respiration rate 16, saturating 96%, temperature was 97.8. HEAD AND NECK: Atraumatic, normocephalic. Bilateral pupils are reactive. Oral mucosa was moist. Neck is supple. No jugular venous distention. LUNGS: Clear to auscultation bilaterally. No wheezing, rhonchi, or rales. HEART: S1 and S2. Regular rate and rhythm. ABDOMEN: Soft, nontender, nondistended. EXTREMITIES: No cyanosis, clubbing, or edema. DIAGNOSTIC STUDIES/LAB DATA: CBC shows minimally elevated white count of 14.7 ; hemoglobin, hematocrit, and platelets were within normal limits. Comprehensive metabolic panel shows elevated BUN at 30, creatinine elevated at 1.38, random glucose elevated at 269. Urinalysis was 1+ blood but negative for any nitrite or leuk esterase. There were epithelial cells present and bacteria was absent. There was glucose as well. CT abdomen and pelvis was showing a 14- mm calculus in the proximal left ureter with moderate left obstructive uropathy and some additional nonobstructive bilateral nephrolithiasis. IMPRESSION: This is a 69-year-old gentleman with hypertension, diabetes, depression, and multiple episodes of kidney stones, comes in again with another episode of obstructive uropathy secondary to a 14-mm calculus in the left proximal ureter. Case was discussed by emergency room physician with Dr. Ken, who recommended admission for possible stenting versus lithotripsy. ASSESSMENT: 1. A 14-mm left proximal ureteral stone with obstructive uropathy. We will keep the patient n.p.o., start the patient on IV hydration, continue Flomax the patient was on, and analgesics and antiemetics as needed. Consult Urology for possible cystoscopy and ureteroscopy with stent and possible lateral lithotripsy. 2. History of hypertension, currently normotensive. We will hold BP medications. 3. History of diabetes. We will hold diabetic medication. We will start the patient on insulin sliding scale until the n.p.o. status clears. 4. History of depression. We will continue with medication. 5. Acute kidney injury, likely secondary to dehydration and obstructive uropathy. We will continue with hydration. 6. History of benign prostatic hypertrophy. Continue Flomax. 7. DVT prophylaxis with sequential compression device. 8. Code status: The patient is currently full code. [id number]/[facility] #: [id number] MTDD
[2019-07-08] MEDS ORDERED: Dexamethasone IV* 4 MG/ML 1 ML (4 MG) ONE (14:45)
[2019-07-08] MEDS ORDERED: Levofloxacin 750 MG IVPREMIX(* 750 MG/150 ML BAG ONE (14:45)
[2019-07-08] MEDS ORDERED: Famotidine IV* 10 MG/ML 2 ML (20 mg) ONE (14:46)
[2019-07-08] MEDS ORDERED: Famotidine IV* 10 MG/ML 2 ML (20 mg) IV ONE (14:54)
[2019-07-08] MEDS ORDERED: Buffered Lidocaine 1% SYRIN* 1 ML/SYRINGE INTRADERM ONE (14:54)
[2019-07-08] MEDS ORDERED: Dexamethasone IV* 4 MG/ML 1 ML (4 MG) IV SLOW PU ONE (14:54)
[2019-07-08] MEDS ORDERED: Lactated Ringers 1000 ML Bag* 1,000 ML IV SCH (15:00)
[2019-07-08] MEDS ORDERED: Midazolam* 1 MG/ML 5 ML VIAL (5 MG) ONE (15:02)
[2019-07-08] MEDS ORDERED: Bupivacaine 0.25% W/EPI* 10 ML SDV ONE (15:02)
[2019-07-08] MEDS ORDERED: fentaNYL* 50 MCG/ML 5 ML VIAL (250 MCG VIAL) ONE (15:02)
[2019-07-08] MEDS ORDERED: Lidocaine 2% PF * 5 ML VIAL ONE (15:03)
[2019-07-08] MEDS ORDERED: Iohexol 180 (CONTRAST) 10 ML SDV IV ONE (15:08)
[2019-07-08] MEDS ORDERED: Propofol* 10 MG/ML 20 ML BTL ONE (15:33)
[2019-07-08] MEDS ORDERED: Ondansetron INJ* 2 MG/ML VIAL ONE (15:33)
[2019-07-08] MEDS ORDERED: fentaNYL* 50 MCG/ML 2 ML VIAL (100 MCG VIAL) IV PRN (15:35)
[2019-07-08] MEDS ORDERED: Naloxone* 0.4 MG/ML 1 ML VIAL IV PRN (15:35)
[2019-07-08] MEDS ORDERED: DiMENhydriNATE IV* 50 MG/ML VIAL IV PUSH PRN (15:35)
[2019-07-08] MEDS ORDERED: Scopolamine 1.5 mg* PATCH TRANSDERM PRN (15:35)
[2019-07-08 16:56] VITALS: BP 121/73
--- NOTE | 2019-07-08 22:32 | OP ---
CC: Leda Juarez NP * DATE OF OPERATION: 07/08/19 - [facility] DATE OF : 52 SURGEON: Dandre Ken MD ANESTHESIOLOGIST: Dr. Santiago Ibarra. ANESTHESIA: General. PRE-OP DIAGNOSES: 1. Left renal colic. 2. Left renal and ureteral calculi. POST-OP DIAGNOSES: 1. Left renal colic. 2. Left renal and ureteral calculi. OPERATIVE PROCEDURE: 1. Cystoscopy. 2. Left retrograde pyelography. 3. Insertion of left ureteral stent (7-Andorran). INDICATION FOR PROCEDURE: Mr. Ricardo is a 69-year-old white male who is a known stone former and who presented to the emergency room early this morning with symptoms of left renal colic. Non-contrast CT of the abdomen and pelvis showed a 2.5 cm non-obstructing calculus in the lower pole calyx of the left kidney and a 1.5 cm obstructing calculus in the proximal left ureter. There were no symptoms of pyelonephritis. He was managed with pain medications and IV fluids. He is taken to the operating room for urgent placement of left ureteral stent in preparation for definite treatment of the stones. OPERATIVE FINDINGS: At cystoscopy, the penile and bulbar urethrae looked normal. The prostatic urethra measured about 2.5 cm in length and there was moderate obstruction by prostate enlargement. Examination of the bladder showed 2 orthotopic ureteral orifices. There were no suspicious bladder lesions seen. No calculi or diverticula were noted. On fluoroscopy, there was a calcification noted in the area of the proximal ureter and a large calcification in the area of the lower pole calyx of the left kidney. Upon left retrograde pyelography, there was moderate left hydronephrosis. Urine from the left kidney looked concentrated but not grossly infected. DESCRIPTION OF PROCEDURE: After successful general anesthesia, the patient was placed in the lithotomy position and was prepped and draped for cystoscopy. Cystoscopy was performed. The bladder was carefully inspected and the above findings were noted. A flexible tip guidewire was then introduced into the left orifice and positioned in the area of the renal pelvis. A open-ended catheter was fed on top of the guidewire and positioned in the renal pelvis. Retrograde pyelography was then performed demonstrating the hydronephrosis. A size 7-Andorran stent was then placed with the proximal end coiling in the renal pelvis and the distal end coiling inside the bladder. Fluoroscopy showed that the stone has migrated from the ureter into the collecting system. There was good drainage of contrast from the kidney. The urine from the left kidney looked concentrated but did not look infected. The patient tolerated the procedure well and left the operating room in good condition. The plan is to obtain a KUB postoperatively. Depending upon the position of the stones, we will decide on the definitive treatment. [id number]/CPS #: [id number] MTDD
--- NOTE | 2019-07-08 23:57 | DS ---
CC: Leda Juarez NP * DISCHARGE SUMMARY: DATE OF ADMISSION: 07/08/19 DATE OF DISCHARGE: 07/08/19 PROVIDER: MARYANN Santos ATTENDING PHYSICIAN WHILE IN THE HOSPITAL: Dr. Madelyn Kingston * (dictated by MARYANN Santos). PRIMARY CARE PROVIDER: Leda Juarez NP CONSULTING UROLOGIST: Dr. Ken. PRIMARY DIAGNOSIS: Left ureteral stone, status post left ureteral stent placement. SECONDARY DIAGNOSES: 1. Hypertension. 2. Diabetes mellitus type 2. 3. Depression. 4. BPH. 5. History of multiple kidney stones with prior stenting and lithotripsy. 6. History of sialadenitis. PROCEDURES WHILE IN THE HOSPITAL: Left ureteral stent placement by Dr. Ken on 07/08/19. PERTINENT LABORATORY DATA: Creatinine on 07/08/19 was 1.56. HISTORY OF PRESENT ILLNESS/HOSPITAL COURSE: Mario Ricardo is a 69-year-old white with past medical history significant for multiple kidney stones and prior stenting, hypertension, diabetes, who presented for left flank pain radiating to groin on the evening of 07/07/19. The patient is admitted to the hospital on 07/08/19. For further information, please see the history and physical written by Dr. Shubham Duarte. The patient was ultimately found on CT abdomen and pelvis to have a 14 mm calculus in the proximal left ureter and having a moderate left obstructive uropathy. Additionally, nonobstructive bilateral nephrolithiasis was found. Dr. Ken with Urology Service saw the patient in consultation, who proceeded with ureteral stenting on the same day. The patient was evaluated in the PACU after procedure and he was pain-free and without any complaints. Dr. Ken felt the patient was safe for discharge after KUB x-ray was taken for outpatient review. PHYSICAL EXAM ON THE DAY OF DISCHARGE: General: Elderly white male, who appears younger than stated age, lying upright in PACU bed, appearing comfortable, in no acute distress. Eyes: PERRLA. Sclerae anicteric. ENT: Mucous membranes are moist. Lungs: Clear to auscultation throughout. Cardio: Regular rate and rhythm without murmur, rubs, or gallops. Abdomen: Soft, nontender, nondistended. Normoactive bowel sounds x4 quadrants. Extremities: No clubbing, cyanosis, or edema. Neuro: The patient is alert and oriented x4. No focal deficits. No tremors. Psych: The patient is pleasant and cooperative. DISCHARGE PLAN: DIET: Carbohydrate consistent diet. ACTIVITY: The patient may return to normal activity as tolerated. The patient is advised to hold his losartan for the next 2 days and to call his primary care provider and ask for a repeat BMP. At this time, if his creatinine is improved, then his losartan should be restarted. The patient is to follow up with Dr. Ken in 1 week. The patient understands that some minor bleeding is expected in the next coming days. He was advised to return to the emergency department should he experience fever, chills, dysuria, certain abdominal or flank pain, or gross blood in the urine. DISCHARGE MEDICATIONS: 1. Tylenol 650 mg p.o. q.6 hours p.r.n. pain. Continued home medication: 1. Aspirin 81 mg p.o. daily. 2. Glipizide 20 mg p.o. daily. 3. Chlorthalidone 25 mg p.o. daily. 4. Jardiance 25 mg p.o. daily. 5. Glipizide/metformin 5/500 mg p.o. 4 times a day. 6. Calcium polycarbophil 625 mg p.o. b.i.d. 7. Lexapro 10 mg p.o. daily. 8. Tamsulosin 0.4 mg p.o. daily. 9. Potassium citrate 10 mEq p.o. 4 times a day. 10. Multivitamin 1 cap p.o. daily. 11. Vitamin E 400 units p.o. b.i.d. 12. Vitamin D 2000 units p.o. b.i.d. Held home medication: Losartan 100 mg p.o. daily. CONDITION ON DISCHARGE: Stable. DISPOSITION: Home. TIME SPENT: Approximately 40 minutes was spent on this discharge, approximately half of this time was spent at the bedside evaluating the patient and discussing the plan for care. MARYANN SANTOS [id number]/[facility] #: [id number] [facility] CENTERJeanine
== END 2019-07-08 11:01 | disposition home or self-care (01) ==
LOC: ED 19:29 → SDS 07-08 11:01
PROVIDERS: ATTEND Urology
DX: N13.2 Hydronephrosis with renal and ureteral calculous obstruction (principal); Z87.442 Personal history of urinary calculi; Z87.891 Personal history of nicotine dependence; E11.9 Type 2 diabetes mellitus without complications; Z79.84 Long term (current) use of oral hypoglycemic drugs; I10 Essential (primary) hypertension; N40.0 Benign prostatic hyperplasia without lower urinary tract symptoms; F32.9 Major depressive disorder, single episode, unspecified; E66.9 Obesity, unspecified
CPT/HCPCS: 36415; 74018; 74176; 74420; 80048; 81003; 81015; 85025; 87077; 87086; 87186; 96374; 96375; 99285; C1876; J1100; J1885; J2250; J2405; J2704; J3010